=== PATIENT | female | born 1940 | race African-American/Black ===

== ENCOUNTER → 2017-01-28 | Outpatient (CLI) | payer MEDICARE, BC ==
[2014-08-28 11:25] VITALS: BP 105/56
[~2017-01-28] MED LIST: CHOL2000 PO; HYDR12.58 PO; IRBE300T PO; MV,1TABL3 PO
--- NOTE | 2017-01-28 15:34 | RAD ---
DATE: 01/28/2017 EXAM: DIGITAL SCREEN BILAT W/CAD HISTORY: Routine screening COMPARISON: 12/26/2015 This study was interpreted with the benefit of Computerized Aided Detection (CAD). FINDINGS: Breast Density: FATTY The Breast Parenchyma is primarily fatty replaced. Breast parenchyma level density A.. There are no dominant suspicious masses, suspicious microcalcifications or evidence of architectural distortion. IMPRESSION: Negative mammogram. BI-RADS CATEGORY: 1 NEGATIVE RECOMMENDED FOLLOW-UP: 12M 12 MONTH FOLLOW-UP PQRS compliance statement: Patient information was entered into a reminder system with a target due date 01/28/2018 for the next mammogram. Mammography is a sensitive method for finding small breast cancers, but it does not detect them all and is not a substitute for careful clinical examination. A negative mammogram does not negate a clinically suspicious finding and should not result in delay in biopsying a clinically suspicious abnormality. "Our facility is accredited by the [employer] Mammography [employer]."
== END | disposition home or self-care (01) ==
LOC: MAMMO 16:07
PROVIDERS: ATTEND Family Medicine
DX: Z12.31 Encounter for screening mammogram for malignant neoplasm of breast (principal)
CPT/HCPCS: G0202; 77067

== ENCOUNTER → 2018-03-23 | Outpatient (CLI) | payer MEDICARE, BC | END | disposition home or self-care (01) | LOC: MAMMO 10:04 | DX: Z12.31 Encounter for screening mammogram for malignant neoplasm of breast (principal); I10 Essential (primary) hypertension; E03.9 Hypothyroidism, unspecified | CPT/HCPCS: 77063; 77067 ==

== ENCOUNTER → 2019-05-11 | Outpatient (CLI) | payer MEDICARE, BC ==
[2014-08-28 11:25] VITALS: BP 105/56
[~2019-05-11] MED LIST changes: +IOHEXOL 240 MG/ML 50ML VIAL. PO ONE; +IOHEXOL 300 MG/ML 100ML VIAL. IV ONE
[2019-05-11 12:06] LABS: CREATININE 1.1 mg/dL (0.6-1.0)
--- NOTE | 2019-05-11 14:08 | RAD ---
PQRS Compliance Statement: One or more of the following individualized dose reduction techniques were utilized for this examination: 1. Automated exposure control 2. Adjustment of the mA and/or kV according to patient size 3. Use of iterative reconstruction technique CT abdomen/pelvis with contrast 05/11/2019 1:00 PM INDICATION: Left abdominal pain COMPARISON: CT abdomen/pelvis 07/12/2014 TECHNIQUE: Multiple axial CT images of the abdomen and pelvis were obtained after the intravenous administration of 75 mL Omnipaque 300. Coronal and sagittal reformats are provided. FINDINGS:s There is a 2 mm solid noncalcified pulmonary nodule in the medial right lower lobe. There is a 3 mm calcified granuloma in the right lung base. Heart size within normal limits. There is no pericardial effusion. Liver, spleen, bilateral adrenal glands and gallbladder are normal in appearance. There is a 3.8 x 3.5 x 3.9 cm hypoattenuating mass centered within the body of the pancreas. The mass abuts the superior mesenteric artery with approximately 90 degree of involvement. The mass abuts the superior mesenteric vein without significant involvement. Superior mesenteric vein is patent. Splenic vein appears patent although limited in evaluation. Periportal lymph node measures 14 mm by short axis (series 3, image 24). There is associated pancreatic ductal dilatation measuring up to 9 mm with atrophy of the distal body and tail the pancreas. Abdominal aorta is normal in course and caliber. There are no pathologically enlarged lymph nodes in abdomen and pelvis. There is no free fluid or free intraperitoneal air. Oral contrast was administered. Opacified bowel loops since her normal mucosal fold pattern. Surgical clips are identified in the left ventral abdomen. No significant recurrent hernia is identified. The kidneys enhance symmetrically. There is no suspicious renal mass. There is no hydronephrosis. There are no suspected calculi within the kidneys, ureters or urinary bladder. Urinary bladder is within normal limits given degree of distention. No suspicious pelvic mass is identified. No suspicious osseous abnormality is identified. IMPRESSION: 1. There is a new 3.8 x 3.5 x 3.9 cm mass centered within the body of the pancreas with associated pancreatic ductal dilatation. Findings suspicious for adenocarcinoma the pancreas. No significant involvement of the superior mesenteric vein or superior mesenteric artery. There is a borderline periportal lymph node measuring 14 mm which may be reactive. Next line 2. No evidence for bowel obstruction or inflammation. FOR INTERNAL CODING PURPOSES Critical result: Findings discussed with DR. KAT PRADO at 05/11/2019 1:58 PM. RESULT CODE: (C) Electronically signed by: Niki Lentz MD (05/11/2019 2:05 PM) [id number]
== END | disposition home or self-care (01) ==
LOC: CT 11:35
PROVIDERS: ATTEND Specialist
DX: J84.10 Pulmonary fibrosis, unspecified (principal); R91.1 Solitary pulmonary nodule; R19.09 Other intra-abdominal and pelvic swelling, mass and lump
CPT/HCPCS: 36415; 74177; 82565; 84520; Q9966; Q9967

== ENCOUNTER → 2019-06-01 | Outpatient (CLI) | payer MEDICARE, BC ==
[2014-08-28 11:25] VITALS: BP 105/56
[~2019-06-01] MED LIST changes: +CONTRAST GIVEN. MC PRN; -IOHEXOL 240 MG/ML 50ML VIAL. PO ONE; +IOHEXOL 300 MG/ML 100ML VIAL. IJ ONE; -IOHEXOL 300 MG/ML 100ML VIAL. IV ONE
--- NOTE | 2019-06-01 11:30 | RAD ---
EXAM: CT Chest with IV contrast CLINICAL HISTORY: INITIAL STAGING FOR PANCREATIC MASS, ABD PAIN. COMPARISON: None. TECHNIQUE: CT of the chest following the administration of intravenous contrast. Axial, coronal and sagittal reformatted images were generated. ---PQRS compliance statement - One or more of the following individualized dose reduction techniques were utilized for this study: 1. Automated exposure control 2. Adjustment of the mA and/or kV according to patient size 3. Use of iterative reconstruction technique--- FINDINGS: CHEST: Heart is not enlarged. No pericardial effusion. Pulmonary arterial trunk measures 3.3 cm in transverse dimension. No pleural effusion or pneumothorax. A thyroid isthmus nodule measures 1.5 x 2.2 cm, should be further assessed with ultrasound. No mediastinal or hilar lymphadenopathy. No axillary lymphadenopathy. Calcified granuloma left upper lobe and right lower lobe. Linear opacities in the lingula and middle lobe likely scarring/atelectasis. A 3 mm medial right lower lobe lung nodule (series 2 image 51) is seen. 3 mm fissural middle lobe lung nodule (series 2 image 29) is seen. Additional 3-4 mm lung nodules are seen within the right lung. Visualized Upper abdomen: Pancreatic mass is better delineated on prior CT abdomen/pelvis. Left renal cystic lesion is partially profiled. Bones: Degenerative changes of the spine are seen. No aggressive osseous lesion is seen. Right glenohumeral joint osteoarthritis. IMPRESSION: 1. Multiple 3-4 mm lung nodules are seen within the right lung. Recommend close attention on follow-up. 2. A thyroid isthmus nodule measures 1.5 x 2.2 cm, should be further assessed with ultrasound. 3. No definite thoracic lymphadenopathy. Electronically signed by: Jarred Orr MD (06/01/2019 11:28 AM) [facility]
--- NOTE | 2019-06-01 13:52 | RAD ---
PQRS Compliance Statement: One or more of the following individualized dose reduction techniques were utilized for this examination: 1. Automated exposure control 2. Adjustment of the mA and/or kV according to patient size 3. Use of iterative reconstruction technique Nuclear medicine whole body bone scan History: Pancreatic mass. Comparison: CT chests with contrast June 01, 2019. CT abdomen and pelvis with contrast May 11, 2019. Technique: Examination performed after intravenous administration of 26 mCi Technetium 99m MDP. Images of the whole body were obtained in the anterior and posterior projections. Findings: Tracer uptake in the spine is mildly heterogeneous, most apparent in the lumbar spine. In the lumbar spine this is probably due to degenerative spondylosis and facet hypertrophy as noted on prior CT. Tracer uptake in ribs and pelvic bones is symmetric. No suspicious increased or decreased tracer uptake is seen. Tracer uptake of the shoulders and sternoclavicular joints is probably degenerative. Tracer uptake in the feet is nonspecific. Tracer uptake of the wrists may be degenerative. Periarticular tracer uptake lateral compartment of right knee is probably degenerative. Tracer distribution in the soft tissues appears normal. Impression: No scintigraphic evidence of bone metastasis. Electronically signed by: Handy Patel MD (06/01/2019 1:49 PM) [id number]
== END | disposition home or self-care (01) ==
LOC: NM 07:47
PROVIDERS: ATTEND Internal Medicine Hematology & Oncology
DX: R92.8 Other abnormal and inconclusive findings on diagnostic imaging of breast (principal); J84.10 Pulmonary fibrosis, unspecified; E04.1 Nontoxic single thyroid nodule; K86.89 Other specified diseases of pancreas
CPT/HCPCS: 71260; 78306; A9503

== ENCOUNTER → 2019-06-04 | Outpatient (CLI) | payer MEDICARE, BC ==
[2014-08-28 11:25] VITALS: BP 105/56
[~2019-06-04] MED LIST changes: -CONTRAST GIVEN. MC PRN; -IOHEXOL 300 MG/ML 100ML VIAL. IJ ONE
--- NOTE | 2019-06-04 15:21 | RAD ---
DATE: 06/04/2019 EXAM: MAMMO LAUREN SCREENING BILATERAL HISTORY: Routine screening COMPARISON: 12/26/2015, 01/28/2017, and 03/23/2018 mammographic exams This study was interpreted with the benefit of Computerized Aided Detection (CAD). Breast Density: SCATTERED The breast parenchyma shows scattered fibroglandular densities. Breast parenchyma level B. FINDINGS: No suspicious calcification, mass, or distortion in the interval. IMPRESSION: Stable. BI-RADS CATEGORY: 1 NEGATIVE RECOMMENDED FOLLOW-UP: 12M 12 MONTH FOLLOW-UP PQRS compliance statement: Patient information was entered into a reminder system with a target due date in one year for the next mammogram. Mammography is a sensitive method for finding small breast cancers, but it does not detect them all and is not a substitute for careful clinical examination. A negative mammogram does not negate a clinically suspicious finding and should not result in delay in biopsying a clinically suspicious abnormality. "Our facility is accredited by the [employer]ammography [employer]."
== END | disposition home or self-care (01) ==
LOC: MAMMO 10:35
PROVIDERS: ATTEND Pediatrics
DX: Z12.31 Encounter for screening mammogram for malignant neoplasm of breast (principal)
CPT/HCPCS: 77063; 77067